=== PATIENT | male | born 1975 | race Caucasian/White ===

== ENCOUNTER 2024-08-08 07:07 | Emergency (ER) | payer BC, OTHER ==
[2024-08-08 07:26] VITALS: RESP 18; TEMP 96.7; O2SAT 98
[2024-08-08] MEDS ORDERED: TORAdol 30 mg Injection ONE (07:37)
[2024-08-08] MEDS: TORAdol 30 mg Injection IM ONE (07:39)
--- NOTE | 2024-08-08 07:57 | ERPHSYRPT ---
- History of Present Illness Time Seen by Provider: 08/08/24 07:07 Source: patient Exam Limitations: no limitations Patient Subjective Stated Complaint: pt states he has been having leg pain for the past 3 weeks Triage Nursing Assessment: pt ambulated into the er with limp; pt is axo x4; c/o leg pain; pt states 4/10 pain, pt states worsening pain with movement; no reddess or swelling present to RLE; strong rt pedal pulse; good cap refill to rt foot; no respiratory distress present; skin PDW; hypertensive Physician History: 49-year-old healthy male with history of degenerative disc disease/off-and-on back pain presented in the ER with 3 weeks history of right lower extremity pain. Patient reports initially it started in the hamstring area and gradually moved down in the calf. Patient reports dull aching pain moderate intensity, more with movements especially getting up from a sitting position. Denies any back pain. No numbness tingling or weakness of lower extremity. No saddle anesthesia. Denies any fall or trauma. Denies any current back pain. Patient reports this pain a little different than his routine back pain. Patient was seen outpatient and has finished course of Medrol Dosepak with no significant relief. Allergies/Adverse Reactions: Penicillins Allergy (Verified 08/08/24 07:14) Hx Tetanus, Diphtheria Vaccination/Date Given: No Hx Influenza Vaccination/Date Given: No Immunizations Up to Date: No Travel Risk - International Travel Have you traveled outside of the country in past 3 weeks: No - Emerging Infectious Disease Are you exhibiting symptoms associated with any current EIDs: No - Review of Systems Constitutional: No Symptoms Ears, Nose, & Throat: No Symptoms Respiratory: No Symptoms Cardiac: No Symptoms Abdominal/Gastrointestinal: No Symptoms Genitourinary Symptoms: No Symptoms Musculoskeletal: Back Pain, Myalgias Skin: No Symptoms Psychological: No Symptoms Endocrine: No Symptoms Hematologic/Lymphatic: No Symptoms Immunological/Allergic: No Symptoms - Past Medical History Pertinent Past Medical History: Yes Neurological History: No Pertinent History ENT History: No Pertinent History Cardiac History: No Pertinent History Respiratory History: No Pertinent History Endocrine Medical History: No Pertinent History Musculoskeletal History: Degenerative Disk Disease GI Medical History: No Pertinent History History: No Pertinent History Psycho-Social History: No Pertinent History Male Reproductive Disorders: No Pertinent History Other Medical History: NONE NOTED - Past Surgical History Past Surgical History: Yes Gastrointestinal: Appendectomy Musculoskeletal: Orthopedic Surgery Other Surgical History: jaw - Social History Smoking Status: Never smoker Exposure to second hand smoke: No Drug Use: none - Social Determinants of Health Do you worry about a steady place to live?: No Do you have any problems with any of the following?: No known problems In the past 12 months,have you had to go without utilities?: No Transportation Issues: No Has anyone in your support network made you feel unsafe?: No Have you or anyone in your house had to go without enough: No - Nursing Vital Signs Nursing Vital Signs: Initial Vital Signs Temperature 96.7 F 08/08/24 07:16 Pulse Rate 64 08/08/24 07:16 Respiratory Rate 18 08/08/24 07:16 Blood Pressure 164/91 08/08/24 07:16 O2 Sat by Pulse Oximetry 98 08/08/24 07:16 Pain Scale Pain Intensity 4 - Physical Exam General Appearance: no apparent distress, alert Eyes, Ears, Nose, Throat Exam: moist mucous membranes Neck Exam: normal inspection, full range of motion Cardiovascular/Respiratory Exam: normal breath sounds, regular rate/rhythm Back Exam: normal inspection, normal range of motion, other (Straight leg raising test positive at 45 degrees on the right. Mild tenderness in the hamstring area with palpation.), No CVA tenderness, No vertebral tenderness, No muscle spasm, No point tenderness Hips Exam: bilateral: non-tender, normal inspection, normal range of motion Legs Exam: bilateral leg: non-tender, normal inspection, normal range of motion Knees Exam: bilateral knee: non-tender, normal inspection, normal range of motion, no evidence of injury Ankle Exam: bilateral ankle: non-tender, normal inspection, normal range of motion Foot Exam: bilateral foot: non-tender, normal inspection, normal range of motion Neuro/Tendon Exam: normal sensation, normal motor functions, normal tendon functions Mental Status Exam: alert, oriented x 3, cooperative Skin Exam: normal color SpO2 Interpretation: normal SpO2: 98 O2 Delivery: Room Air Ordered Tests: Active Orders 24 hr Category Date Time Status VENOUS UNILAT/LIMITED EXTREMIT [US] Stat Exams 08/08/24 07:28 Taken Medication Summary Discontinued Medications Generic Name Dose Route Start Last Admin Trade Name Freq PRN Reason Stop Dose Admin Ketorolac Tromethamine 30 mg 08/08/24 07:37 08/08/24 07:39 Ketorolac Tromethamine 30 Mg/Ml Inj IM 08/08/24 07:38 30 mg STAT ONE Administration Ketorolac Tromethamine Confirm 08/08/24 07:37 Ketorolac Tromethamine 30 Mg/Ml Inj Administered 08/08/24 07:38 Dose 30 mg .ROUTE .STK-MED ONE - Progress Progress: pain not gone completely, re-examined Progress Note: 08/08/24 08:38 49-year-old is evaluated in the ER for right lower extremity pain without fall or trauma. Patient has negative neuroexam in lower extremities. No loss of bowel or bladder control/saddle anesthesia. No bony tenderness. Has some tenderness with palpation in the hamstring area. Pain is reproducible with straight leg raising. Given Toradol for symptomatic relief with some improvement in pain but not completely resolved. Patient ultrasound is negative for DVT per preliminary report, official report is pending. I believe patient pain is more of a sciatica and is from his back. Recommended outpatient follow- up with primary care/spinal surgery which she has seen in the past in [facility] for further evaluation and possible MRI. Discussed signs symptoms of worsening needing return to ER which she seems understanding. Recommended/we will start him on NSAIDs and muscle relaxants to go home. Counseled pt/family regarding: diagnosis, need for follow-up, rad results Medical Desision Making - Independent Historian Additional History obtained from: Spouse - Diagnostic Testing Diagnostic test were ordered, analyzed, and reviewed by me: Yes Radiological Interpretation: Reviewed by me, Teleradiologist Report - Risk of complications The pt has a mod risk of morbidity or mortality based on: Need for prescription drug management - Departure Departure Disposition: Home Clinical Impression: Leg pain, posterior Condition: Stable Critical Care Time: No Referrals: MAUREEN GLYNN MD [Primary Care Provider] - Follow up with PCP 1 day Instructions: Sciatica ED, Exercises for sciatic pain Additional Instructions: Take Tylenol/diclofenac as needed. Follow-up with primary care/spinal surgery for reevaluation. Return to ER for intractable pain, numbness weakness of lower extremities/loss of bowel or bladder control/saddle anesthesia. Prescriptions: Methocarbamol [Robaxin] 750 mg PO Q8HPRN PRN 10 Days #30 tablet PRN Reason: Pain Diclofenac Sodium 50 mg [Voltaren 50 mg] 50 mg PO TID PRN 10 Days #25 tablet PRN Reason: Pain
[2024-08-08 08:49] VITALS: BP 132/77; PULSE 62
--- NOTE | 2024-08-08 08:53 | XRAY ---
CLINICAL HISTORY: pain COMPARISON: None. TECHNIQUE: Ultrasound examination of the right lower extremity veins was performed in real time and duplex. One or more of the following were performed- spectral analysis, resistive index, waveform analysis, and pulsed Doppler. FINDINGS: Normal phasic, non-pulsatile and spontaneous flow is noted in right GSV, common femoral, superficial femoral, popliteal and posterior tibial veins. Visualized veins of right lower extremity demonstrate normal compressibility. No sonographic evidence of acute deep vein thrombosis (DVT) is detected in the visualized veins of lower extremity. Compression and Augmentation: All evaluated veins compress fully with applied transducer pressure. Augmentation of venous flow is noted with distal compression. Additional Findings: No evidence of intraluminal thrombus. IMPRESSION: No sonographic evidence of acute DVT detected at the time of examination. Disclaimer: DVT could be missed early in the disease when clot burden is minimal. For patients with moderate and high pretest probability of DVT and negative ultrasound, the [employer] clinical guidelines recommend testing with a D-dimer assay or repeat ultrasound in 5-7 days. If symptoms worsen, the Society of radiologists in ultrasound recommends repeating ultrasound even earlier. Electronically Signed by: Satish Hawk MD. (08/08/2024 08:48:55 EDT)
== END 2024-08-08 08:53 | disposition home or self-care (01) ==
LOC: ED 07:07
DX: M79.604 Pain in right leg (principal); M54.31 Sciatica, right side
CPT/HCPCS: 93971; 96372; 99283; J1885